=== PATIENT | female | born 1995 | race Caucasian/White ===

== ENCOUNTER 2018-10-31 10:55 | Observation (INO) ==
--- NOTE | 2018-10-31 11:15 | Emergency Department Note ---
Disposition Clinical Impression: Dehydration, Elevated troponin Intractable vomiting Qualifiers: Vomiting type: unspecified Nausea presence: with nausea Qualified Code(s): R11.2 - Nausea with vomiting, unspecified Disposition: Admitted As Inpatient Condition: Undetermined Referrals: NONE,PCP [Primary Care Provider] - Forms: ED Satisfaction Letter Time of Disposition: 16:04 General Adult HPI - General Chief complaint: ED Nausea/Vomiting/Diarrhea Stated complaint: Vomiting x3 days Time Seen by Provider: 10/31/18 11:04 Source: patient, family Mode of arrival: ambulatory Limitations: no limitations Nursing Notes Reviewed: Yes Vital Signs Reviewed: Yes - History of Present Illness HPI Narrative: 22-year-old female 3 days nausea vomiting Seen 1 month ago for similar symptoms patient stated nausea vomiting resolved with IM Phenergan Patient states that she has been without symptoms for the past 3 weeks leading up to approximately 3 days ago Patient has been unable to tolerate by mouth intake since that time. Patient with fever/chills, chest discomfort shortness of breath, generalized abdominal pain/nausea/vomiting, no hematuria or hematochezia Onset (ago): day(s) Location: abdomen Radiation: non-radiation Pain Severity: similar to prior episodes Pain Scale: 7 Quality: stabbing Consistency: constant, Worsening Improves with: medication Associated symptoms: Reports: chest pain, fever/chills, loss of appetite, malaise, nausea/vomiting, shortness of breath, weakness - Related Data Allergies Allergy/AdvReac Type Severity Reaction Status Date / Time No Known Allergies Allergy Verified 03/26/15 04:59 All systems ED: reviewed and negative except as stated. Review of Systems: As Per HPI Constitutional: Reports: fever, chills, weakness Cardiovascular: Reports: chest pain Respiratory: Reports: dyspnea. Denies: hemoptysis Gastrointestinal: Reports: abdominal pain, nausea, vomiting, diarrhea. Denies: constipation, hematemesis, hematochezia Genitourinary: Denies: hematuria Musculoskeletal: Denies: back pain, neck pain Neurological: Reports: weakness. Denies: headache, numbness, paresthesias Past Medical History - Past Medical History Medical history: Reports: GERD Surgical history: Reports: no surgical history Psychiatric history: Reports: no psych history - Social History Smoking Status: Current every day smoker Smokeless Tobacco Status: No Alcohol use: Reports: none Drug use: Reports: none Physical Exam - General Limitations: no limitations General appearance: alert, in no apparent distress - Head Head exam: atraumatic, normocephalic, normal inspection - Eye Eye exam: Present: normal appearance, PERRL, EOMI. Absent: scleral icterus - Neck Neck exam: Present: normal inspection - Chest Chest inspection: Present: normal inspection, symmetric chest wall rise - Respiratory Respiratory exam: Present: normal lung sounds bilaterally, respiratory distress. Absent: wheezes, stridor, accessory muscle use, prolonged expiratory phase - Cardiovascular Cardiovascular exam: Present: regular rate, normal rhythm, normal heart sounds, +S1, +S2. Absent: systolic murmur, diastolic murmur, JVD, +S3, +S4 - Abdominal Exam Abdominal exam: Present: soft, Non-Tender, normal bowel sounds. Absent: distention, guarding, rebound, rigidity, organomegaly - Neurological Exam Neurological exam: Present: alert, oriented X3 - Psychiatric Psychiatric exam: Present: normal affect, normal mood - Skin Skin exam: Present: warm, dry, intact, normal color. Absent: rash, cyanosis, diaphoresis, erythema, pallor, mottled Course Course Narrative: CBC, BMP, urinalysis, urine , chest x-ray Phenergan/Zofran for symptom management. opening the you - Reevaluation(s) Reevaluation #1: Laboratory and imaging results unremarkable for acute pathology. Patient still feeling nauseous with vomiting We will give 25 mg Phenergan at this time. We will reassess Vital Signs Temperature 97.9 F 10/31/18 11:06 Pulse Rate 118 10/31/18 11:06 Respiratory Rate 18 10/31/18 11:06 Blood Pressure 137/90 10/31/18 11:06 O2 Sat by Pulse Oximetry 95 10/31/18 11:06 Temperature 97.9 F 10/31/18 11:24 Pulse Rate 81 10/31/18 15:36 Respiratory Rate 18 10/31/18 15:36 Blood Pressure 137/103 10/31/18 15:36 O2 Sat by Pulse Oximetry 100 10/31/18 15:36 Oxygen Delivery Oxygen Delivery Room Air Medical Decision Making - [facility] Narrative Medical decision making narrative: Patient troponin elevated 0.05. Patient continues to vomit despite Zofran +2 doses of Phenergan Patient will be admitted to hospital medicine service for troponin trending and intractable vomiting. Urine toxicology, nothing by mouth and maintenance fluids started per hospitalist request. - Lab Data Lab results reviewed: Yes I reviewed the patient's lab results. Result diagrams: 10/31/18 11:40 10/31/18 11:40 Lab Results 10/31/18 10/31/18 10/31/18 Range/Units 11:26 11:33 11:40 WBC 8.2 (4.3-11.1) K/mcL RBC 4.85 (3.82-4.97) M/mcL Hgb 15.0 (11.5-15.4) g/dL Hct 43.2 (35.3-44.9) % MCV 89.1 (83.0-100.0) fL MCH 30.9 (28.0-33.3) pg MCHC 34.7 (31.6-35.5) g/dL RDW 13.0 (11.5-14.5) % Plt Count 231 (140-400) K/mcL MPV 9.6 (9.4-12.4) fL Immature Gran % 0.4 (0-4) % Seg Neutrophils % 71.9 % Lymphocytes % 18.3 % Monocytes % 9.2 % Eosinophils % 0.0 % Basophils % 0.2 % Neutrophils # 5.9 (1.6-8.9) K/mcL Lymphocytes # 1.5 (0.6-4.6) K/mcL Monocytes # 0.8 (0.0-1.3) K/mcL Eosinophils # 0.0 (0.0-0.6) K/mcL Basophils # 0.0 (0.0-0.2) K/mcL Sodium (136-145) mEq/L Potassium (3.5-5.1) mEq/L Chloride (98-107) mEq/L Carbon Dioxide (23-29) mEq/L BUN (6-20) mg/dL Creatinine (0.60-1.20) mg/dL Est GFR ( Amer) (> 60) Est GFR (Non-Af Amer) (> 60) BUN/Creatinine Ratio (6-26) Glucose (70-105) mg/dL Calculated Osmolality (280-300) Calcium (8.6-10.3) mg/dL Troponin I (< 0.04) ng/mL Ur Specimen Adequacy See below A Urine Color Yellow (Yellow) Urine Clarity Clear (Clear) Urine pH 6.0 (5.0-8.0) pH Units Ur Specific [place] >= 1.030 H (1.010-1.025) Urine Protein >=300 H (Neg-Trace) mg/dL Urine Glucose (UA) Normal (Normal) mg/dL Urine Ketones 40 H (Negative) mg/dL Urine Blood Negative (Negative) Urine Nitrite Negative (Negative) Urine Bilirubin Small H (Negative) Urine Urobilinogen Normal (Normal) mg/dL Ur Leukocyte Esterase Negative (Negative) Ur Squamous Epith Cells Many H (None-Few) per lpf Urine Bacteria Few (None-Few) per hpf Urine Mucus Few (Few) Urine Test Negative (Negative) 10/31/18 Range/Units 11:40 WBC (4.3-11.1) K/mcL RBC (3.82-4.97) M/mcL Hgb (11.5-15.4) g/dL Hct (35.3-44.9) % MCV (83.0-100.0) fL MCH (28.0-33.3) pg MCHC (31.6-35.5) g/dL RDW (11.5-14.5) % Plt Count (140-400) K/mcL MPV (9.4-12.4) fL Immature Gran % (0-4) % Seg Neutrophils % % Lymphocytes % % Monocytes % % Eosinophils % % Basophils % % Neutrophils # (1.6-8.9) K/mcL Lymphocytes # (0.6-4.6) K/mcL Monocytes # (0.0-1.3) K/mcL Eosinophils # (0.0-0.6) K/mcL Basophils # (0.0-0.2) K/mcL Sodium 133 L (136-145) mEq/L Potassium 3.1 L (3.5-5.1) mEq/L Chloride 106 (98-107) mEq/L Carbon Dioxide 19 L (23-29) mEq/L BUN 17 (6-20) mg/dL Creatinine 0.76 (0.60-1.20) mg/dL Est GFR ( Amer) > 60 (> 60) Est GFR (Non-Af Amer) > 60 (> 60) BUN/Creatinine Ratio 22 (6-26) Glucose 126 H (70-105) mg/dL Calculated Osmolality 279 L (280-300) Calcium 9.5 (8.6-10.3) mg/dL Troponin I 0.05 H* (< 0.04) ng/mL Ur Specimen Adequacy Urine Color (Yellow) Urine Clarity (Clear) Urine pH (5.0-8.0) pH Units Ur Specific [place] (1.010-1.025) Urine Protein (Neg-Trace) mg/dL Urine Glucose (UA) (Normal) mg/dL Urine Ketones (Negative) mg/dL Urine Blood (Negative) Urine Nitrite (Negative) Urine Bilirubin (Negative) Urine Urobilinogen (Normal) mg/dL Ur Leukocyte Esterase (Negative) Ur Squamous Epith Cells (None-Few) per lpf Urine Bacteria (None-Few) per hpf Urine Mucus (Few) Urine Test (Negative) - Radiology Data Radiology results reviewed: Yes I reviewed the patient's radiology results. Chest X-Ray 10/31/18 11:45 IMPRESSION: Normal chest x-ray D/ / Sudeep Linn MD / Sudeep Linn MD Interpreting Provider: Sudeep Linn MD - EKG Data EKG #1 EKG attestation: Yes I reviewed and interpreted this EKG. EKG results narrative: Patient EKG shows a sinus rhythm with sinus positive with a heart rate of 89 bpm, RI interval of 135 ms, QRS duration of 91 ms, QT/QTc interval of 4341/415 ms respectively. There are no acute ST segment elevations, depressions, pathologic Q waves, abnormal T-wave inversions, or any other signs of acute ischemic change. EKG performed today is generally consistent with prior EKG performed on 03/26/2015.
[2018-10-31] MEDS ORDERED: 0.9 % Sodium Chloride 1,000 ML IVC ONE (11:24)
[2018-10-31] MEDS ORDERED: Ondansetron 4 MG/2 ML VIAL IVP ONE (11:24)
--- NOTE | 2018-10-31 11:28 | Emergency Department Note ---
Disposition Clinical Impression: Dehydration Disposition: Still a Patient Forms: ED Satisfaction Letter General Adult HPI - General Chief complaint: ED Nausea/Vomiting/Diarrhea Stated complaint: Vomiting x3 days Time Seen by Provider: 10/31/18 11:04 Source: patient, family Mode of arrival: ambulatory Limitations: no limitations Nursing Notes Reviewed: Yes Vital Signs Reviewed: Yes - History of Present Illness HPI Narrative: Attestation note: Patient was seen with the emergency medicine resident/nurse practitioner/physician health care assistant/transitional resident/medical student: Dr. Miguel Seals I have personally performed a face to face evaluation on this patient. I have reviewed and agree with history and physical examination patient management and disposition. Briefly the salient points of the case are as follows: 22-year-old female otherwise healthy was seen several weeks ago [facility] in the emergency department for vomiting he said that she had low potassium IV fluids any UTI and put on antibiotics. She said she was fine until about 3 days ago when the same symptoms started about denies fevers chills shortness breath or chest pain abdomen surgically benign no CVAT no new sexual contacts or vaginal discharge. Patient appears clinically dehydrated. Patient with IV normal saline 1 L bolus 10 mg of IV Zofran screening labs including UA and urine . Disposition pending Pain Scale: 7 - Related Data Home Medications Medication Instructions Recorded Confirmed Vit/FA 04/23/15 04/23/15 Previous Rx's Medication Instructions Recorded Clindamycin [Cleocin] 150 mg PO Q6HR #8 capsule 07/24/15 OxyCODONE Immed Rel [Roxicodone 5 5 - 10 mg PO Q6HR PRN #30 tablet 07/24/15 MG] Allergies Allergy/AdvReac Type Severity Reaction Status Date / Time No Known Allergies Allergy Verified 03/26/15 04:59 Past Medical History - Past Medical History Medical history: Reports: GERD Surgical history: Reports: no surgical history Psychiatric history: Reports: no psych history - Social History Smoking Status: Current every day smoker Smokeless Tobacco Status: No Alcohol use: Reports: none Drug use: Reports: none Course Vital Signs Temperature 97.9 F 10/31/18 11:06 Pulse Rate 118 10/31/18 11:06 Respiratory Rate 18 10/31/18 11:06 Blood Pressure 137/90 10/31/18 11:06 O2 Sat by Pulse Oximetry 95 10/31/18 11:06 Temperature 97.9 F 10/31/18 11:06 Pulse Rate 118 10/31/18 11:06 Respiratory Rate 18 10/31/18 11:06 Blood Pressure 137/90 10/31/18 11:06 O2 Sat by Pulse Oximetry 95 10/31/18 11:06 Oxygen Delivery Oxygen Delivery Room Air
[2018-10-31 11:41] LABS: Bilirubin,Urine Small (Negative); Blood,Urine Negative (Negative); Clarity,Urine Clear (Clear); Color,Urine Yellow (Yellow); Glucose,Urine (UA) Normal (Normal); Ketones,Urine 40 mg/dL (Negative); Leukocyte Esterase,Urine Negative (Negative); Nitrite,Urine Negative (Negative); Protein,Urine >=300 mg/dL (Neg-Trace); Specific Gravity,Urine >= 1.030 (1.010-1.025); Urobilinogen,Urine Normal (Normal)
[2018-10-31 11:44] LABS: Bacteria,Urine Few per hpf (None-Few); Mucus,Urine Few (Few); Squamous Epithelial Cell,Urine Many per lpf (None-Few)
[2018-10-31 12:06] LABS: Basophils % 0.2 %; Hematocrit 43.2 % (35.3-44.9); Immature Granulocytes % 0.4 % (0-4); Lymphocytes # 1.5 K/mcL (0.6-4.6); Lymphocytes % 18.3 %; Mean Corpuscular HGB Conc 34.7 g/dL (31.6-35.5); Mean Corpuscular Hemoglobin 30.9 pg (28.0-33.3); Mean Corpuscular Volume 89.1 fL (83.0-100.0); Mean Platelet Volume 9.6 fL (9.4-12.4); Monocytes # 0.8 K/mcL (0.0-1.3); Monocytes % 9.2 %; Neutrophils # 5.9 K/mcL (1.6-8.9); Platelet Count 231 K/mcL (140-400); Red Blood Count 4.85 M/mcL (3.82-4.97); Segmented Neutrophils % 71.9 %
[2018-10-31 12:14] LABS: BUN/Creatinine Ratio 22 (6-26); Blood Urea Nitrogen 17 mg/dL (6-20); Calcium 9.5 mg/dL (8.6-10.3); Carbon Dioxide 19 mEq/L (23-29); Chloride 106 mEq/L (98-107); Glucose 126 mg/dL (70-105); Osmolality,Calculated 279 (280-300); Potassium 3.1 mEq/L (3.5-5.1); Sodium 133 mEq/L (136-145); eGFR For Non-African Americans > 60 (> 60)
[2018-10-31] MEDS ORDERED: *HR* Promethazine 25 MG/ML VIAL IVP ONE ×2 (12:31→15:00)
[2018-10-31 15:50] LABS: Troponin I 0.05 ng/mL (< 0.04)
[2018-10-31] MEDS ORDERED: *HR* Promethazine 25 MG/ML VIAL IVP PRN (16:35)
[2018-10-31] MEDS ORDERED: Acetaminophen 325 MG TABLET PO PRN (16:35)
[2018-10-31] MEDS ORDERED: Naloxone 0.4 MG/ML INJ IVP PRN (16:35)
[2018-10-31] MEDS ORDERED: Ondansetron 4 MG/2 ML VIAL IVP PRN (16:35)
--- NOTE | 2018-10-31 16:50 | Internal Med History&Physical ---
Date of Encounter: 10/31/18 Time of Encounter: 16:37 Internal Medicine - H&P: HPI Chief complaint: N/V Admitted From: Emergency Dept History of present illness: Shira Olivares is a 22 F w hx morbid obesity, anxiety, who p/w N/V. Started 3 days ago. Not really able to keep anything down including liquids. States she thinks she had a head/chest cold for a day or two prior to these symptoms. Has had subjective fever/chills in last 2 days. Throat is sore after throwing up but was sore prior, too. Does also have some chest burning and aching following vomiting. No diarrhea, no rash. Denies drug use including no THC. Denies . States she had an episode 1 month ago of similar symptoms, came to this ED and improved w IV phenergan. In the ED, pt vitals w HR 110s. Pt vomiting despite repeated doses of both zofran and phenergan. Labs w Na 133, K 3.1, CO2 19, trop 0.05. Past medical, surgical, social, and family histories reviewed and updated as below, with addition to FHx that mother has no hx GI issues. Past Med Surg Social Fam HX - Past Medical History Medical history: GERD Psychiatric history: anxiety, depression - Past Surgical History Surgical History: no surgical history Additional surgical history: EGD 2011 - Social History Smoking Status: Current every day smoker Smokeless Tobacco Status: No Alcohol use: none Drug use: marijuana - Family History Mother Living Status: Still Living Hx Family Endocrine Disorder: Yes Internal Medicine - H&P: Meds No Known Home Drugs 10/31/18 [History] Allergy/AdvReac Type Severity Reaction Status Date / Time No Known Allergies Allergy Verified 03/26/15 04:59 All Systems PM: A 10-system review of systems was performed and is negative for pertinent findings except as documented above in the HPI. - Constitutional Vitals: Temp Pulse Resp BP Pulse Ox 97.9 F 81 18 137/103 100 10/31/18 11:24 10/31/18 15:36 10/31/18 15:36 10/31/18 15:36 10/31/18 15:36 Exam: General: NAD, good eye contact, uncomfortable appearing, obese Head: Atraumatic, normocephalic. Face symmetric Eyes: EOMI, sclerae anicteric ENT: Mucous membranes dry. Normal oral mucosa and dentition. Trachea midline. Thoracic: No visible chest wall deformities. Normal breath sounds b/l, no wheezing or crackles Cardio: Normal S1 and S2, regular rate and rhythm, no murmurs. Abdomen: Soft, nontender, nondistended. Bowel sounds present. No rebound Extremities: Warm, well perfused. DP pulses 2+ b/l. No clubbing, cyanosis. No edema Skin: Intact. No rashes, bruises, or ulcers Neuro: Awake, fully oriented. Good memory, concentration, attention. Speech fluent. Internal Med - H&P Results - Labs CBC & Chem 7: 10/31/18 11:40 10/31/18 11:40 Labs: Short CBC 10/31/18 Range/Units 11:40 WBC 8.2 (4.3-11.1) K/mcL Hgb 15.0 (11.5-15.4) g/dL Hct 43.2 (35.3-44.9) % Plt Count 231 (140-400) K/mcL Neutrophils # 5.9 (1.6-8.9) K/mcL BMP 10/31/18 11:40 Sodium 133 L Potassium 3.1 L Chloride 106 Carbon Dioxide 19 L BUN 17 Creatinine 0.76 Glucose 126 H Calcium 9.5 Cardiac Enzymes 10/31/18 Range/Units 11:40 Troponin I 0.05 H* (< 0.04) ng/mL Urine 10/31/18 Range/Units 11:26 Urine Color Yellow (Yellow) Urine Clarity Clear (Clear) Urine pH 6.0 (5.0-8.0) pH Units Ur Specific [place] >= 1.030 H (1.010-1.025) Urine Protein >=300 H (Neg-Trace) mg/dL Urine Glucose (UA) Normal (Normal) mg/dL - Impressions ITS Impressions Chest X-Ray 10/31/18 11:45 IMPRESSION: Normal chest x-ray D/ / Sudeep Linn MD / Sudeep Linn MD Interpreting Provider: Sudeep iLnn MD - Summary of Assessment and Plan Summary of Assessment and Plan: Shira Olivares is a 22 F w hx morbid obesity, anxiety, who p/w refractory N/V and electrolyte abnormalities. Refractory N/V: not , UA unremarkable - Utox - MIVF NS@150 - zofran and phenergan, will consider haldol or ativan for breakthrough Hyponatremia: hypovolemic, rehydrate and monitor Hypokalemia: replace and monitor Starvation ketosis: UA w ketones, no PO intake in 3 days, hydrate and supportive care Non-gap metabolic acidosis: possibly 2/2 starvation ketosis, otherwise unclear etiology as no diarrhea and would expect alkalosis from vomiting, if not improving w hydration will eval for RTA Elevated troponin: no reason to suspect ischemia other than CP after vomiting, ECG normal. Will repeat trop in AM following rehydration to ensure clearance Anxiety: vistaril 25 tid prn Morbid obesity: BMI 44 PPx: ambulate FEN: regular, MIVF NS@150 Lines: PIV Consults: Code: Full Dispo: obs for n/v, anticipate 1-2 days, will be homegoing
[2018-10-31] MEDS: 0.9 % Sodium Chloride 1,000 ML IVC SCH ×2 (17:30→18:44)
[2018-11-01] MEDS: hydrOXYzine pamoate 25 MG CAPSULE PO PRN ×2 (00:40→16:39)
[2018-11-01 02:27] LABS: Hematocrit 39.7 % (35.3-44.9); Hemoglobin 12.9 g/dL (11.5-15.4); Mean Corpuscular HGB Conc 32.5 g/dL (31.6-35.5); Mean Corpuscular Hemoglobin 30.7 pg (28.0-33.3); Mean Corpuscular Volume 94.5 fL (83.0-100.0); Mean Platelet Volume 10.4 fL (9.4-12.4); Platelet Count 202 K/mcL (140-400); Red Cell Distribution Width 13.3 % (11.5-14.5)
[2018-11-01 02:47] LABS: Troponin I < 0.03 ng/mL (< 0.04)
[2018-11-01] MEDS: 0.9 % Sodium Chloride 1,000 ML IVC SCH ×6 (02:57→20:18)
[2018-11-01 02:59] LABS: Alanine Aminotransferase 11 Units/L (7-52); Albumin 3.6 g/dL (3.5-5.7); Albumin/Globulin Ratio 1.1 (1.1-2.2); Alkaline Phosphatase 38 Units/L (34-104); Aspartate Amino Transferase 16 Units/L (13-39); BUN/Creatinine Ratio 16 (6-26); Bilirubin,Direct 0.1 mg/dL (0.0-0.2); Bilirubin,Indirect 0.2 mg/dL (0.0-1.2); Bilirubin,Total 0.3 mg/dL (0.3-1.0); Blood Urea Nitrogen 12 mg/dL (6-20); Calcium 8.6 mg/dL (8.6-10.3); Carbon Dioxide 22 mEq/L (23-29); Chloride 108 mEq/L (98-107); Globulin 3.3 g/dL (2.4-3.5); Glucose 96 mg/dL (70-105); Magnesium 1.8 mg/dL (1.6-2.6); Osmolality,Calculated 284 (280-300); Phosphorous 2.9 mg/dL (2.7-4.5); Potassium 4.3 mEq/L (3.5-5.1); Sodium 137 mEq/L (136-145); Total Protein 6.9 g/dL (6.4-8.9); eGFR For Non-African Americans > 60 (> 60)
[2018-11-01 09:16] LABS: Amphetamine Screen,Urine Negative ng/mL (Cutoff=1000); Barbiturate Screen,Urine Negative ng/mL (Cutoff=200); Benzodiazepines Screen,Urine Negative ng/mL (Cutoff=200); Cannabinoid Screen,Urine Positive ng/mL (Cutoff = 50); Cocaine Screen,Urine Negative ng/mL (Cutoff= 300); Opiate Screen,Urine Negative ng/mL (Cutoff=300); Phencyclidine Screen,Urine Negative ng/mL (Cutoff=25)
[2018-11-01] MEDS ORDERED: *HR* LORazepam 1 MG TABLET PO PRN (12:04)
--- NOTE | 2018-11-01 14:44 | Internal Med Progress Note ---
Hospitalist Progress Note - Encounter Date of Encounter: 11/01/18 Time of Encounter: 14:41 - Subjective Interval History: Ms. Olivares is a 22 F w hx morbid obesity, anxiety and chronic marijuana dependence patient presented to ER complaining with intractable nausea and vomiting from last 3 days. Patient was admitted in the hospital and started on IV hydration along with symptomatic care. Pt stated she felt little better y/d, however today again she has worsening nausea and vomiting. Denied any CP. She does c/o anxiety and lot of stress at home. - Exam Vitals: Temp Pulse Resp BP Pulse Ox 97.7 F 61 14 124/83 99 11/01/18 11:11 11/01/18 11:11 11/01/18 11:11 11/01/18 11:11 11/01/18 11:11 Exam: Gen: Alert, awake, Oriented to time,place and person Chest: Diminished breath sounds B/L, No wheezing, No crackles, No rales Heart: S1S2+ RRR No murmurs Abd: Soft, NT, BS +, No organomegaly Ext: No edema, pulses are palpable, No calf tenderness Neuro : Benign findings Skin: No rash. - Assessment and Plan (1) Intractable vomiting Current Visit: Yes Status: Acute Assessment and Plan: Mostly due to viral gastroenteritis also concerning for possible withdrawal symptoms / Anxiety related too cont IV hydration Cont anti emetics Zofran and Phenergan started her on Ativan too advance diet as she tolerates (2) Dehydration Current Visit: Yes Status: Acute Assessment and Plan: on IVF (3) Elevated troponin Current Visit: Yes Status: Acute Assessment and Plan: Due to demand ischemia serial trop x 2 were negative no further work up needed (4) Anxiety Current Visit: Yes Status: Acute Assessment and Plan: Placed her on Ativan - Time Spent with Patient Total time spent is greater than 50% in coordination of care (as documented) at patient's floor/unit and/or counseling patient: Internal Medicine: Result - Labs CBC & Chem 7: 11/01/18 01:47 11/01/18 01:47 Labs: Short CBC 11/01/18 Range/Units 01:47 WBC 6.8 (4.3-11.1) K/mcL Hgb 12.9 D (11.5-15.4) g/dL Hct 39.7 (35.3-44.9) % Plt Count 202 (140-400) K/mcL BMP 10/31/18 11/01/18 11:40 01:47 Sodium 133 L 137 Potassium 3.1 L 4.3 D Chloride 106 108 H Carbon Dioxide 19 L 22 L BUN 17 12 Creatinine 0.76 0.73 Glucose 126 H 96 Calcium 9.5 8.6 Cardiac Enzymes 10/31/18 10/31/18 11/01/18 Range/Units 11:40 16:53 01:47 Troponin I 0.05 H* < 0.03 < 0.03 (< 0.04) ng/mL Liver Function 11/01/18 Range/Units 01:47 Total Bilirubin 0.3 (0.3-1.0) mg/dL Direct Bilirubin 0.1 (0.0-0.2) mg/dL AST 16 (13-39) Units/L ALT 11 (7-52) Units/L Alkaline Phosphatase 38 (34-104) Units/L Albumin 3.6 (3.5-5.7) g/dL Consult Discharge Plan - Plan Referrals: Rula Abdullahi, DESIGN PROJECT MANAGER [Advanced Practice Nurse] - 11/08/18 11:00 am ___ (1) Intractable vomiting Qualifiers: Vomiting type: unspecified Nausea presence: with nausea Qualified Code(s): R11.2 - Nausea with vomiting, unspecified
[2018-11-02] MEDS: hydrOXYzine pamoate 25 MG CAPSULE PO PRN
[2018-11-02] MEDS: 0.9 % Sodium Chloride 1,000 ML IVC SCH (03:17)
[2018-11-02 06:51] VITALS: BP 133/83
--- NOTE | 2018-11-02 09:18 | Discharge Summary ---
- NOTES TO OUTPATIENT PROVIDER Notes to Outpatient Provider: Follow up with PCP in one week. Please quit smoking tobacco and marijuana Date of Encounter: 11/02/18 Time of Encounter: 09:14 - Discharge Diagnosis (1) Intractable vomiting Priority: Primary Status: Acute Qualifiers: Vomiting type: unspecified Nausea presence: with nausea Qualified Code(s): R11.2 - Nausea with vomiting, unspecified (2) Dehydration Priority: Primary Status: Acute (3) Elevated troponin Priority: Secondary Status: Acute (4) Anxiety Priority: Secondary Status: Acute Hospital course: Ms. Olivares is a 22 F w hx morbid obesity, anxiety and chronic marijuana dependence patient presented to ER complaining with intractable nausea and vomiting from last 3 days. Patient was admitted in the hospital and started on IV hydration along with symptomatic care. She does have slightly elevated troponin initially, which could be mostly due to demand ischemia. Her serial troponin were negative and no acute ischemic changes noticed on EKG. Her intractable nausea vomiting seems to be secondary to possible withdrawal symptoms / Anxiety related too. With IV Zofran and Ativan her symptoms improved. Her UDS came back as positive for Marijuana, counseled the pt to quit smoking tobacco and Marijuana. Today pt tolerating PO intake well. Will d/c her home in stable condition today. - Time Spent with Patient Total time spent providing and/or coordinating discharge services: - Discharge Medications Prescriptions: New LORazepam [Ativan] 0.5 mg PO BID PRN 5 Days #10 tablet PRN Reason: Anxiety Ondansetron ODT [Zofran ODT] 4 mg SL Q8HR PRN #15 tab.rapdis PRN Reason: Nausea Home Medications: LORazepam [Ativan] 0.5 mg PO BID PRN 5 Days #10 tablet 11/02/18 [Rx] Ondansetron ODT [Zofran ODT] 4 mg SL Q8HR PRN #15 tab.rapdis 11/02/18 [Rx] Allergies/Adverse Reactions: Allergy/AdvReac Type Severity Reaction Status Date / Time No Known Allergies Allergy Verified 03/26/15 04:59 Date of admission: 10/31/18 16:28 Primary care physician: PCP NONE - Constitutional Vitals: Temp Pulse Resp BP Pulse Ox 98.2 F 53 18 133/83 97 11/02/18 06:46 11/02/18 06:46 11/02/18 06:46 11/02/18 06:46 11/02/18 06:46 General appearance: Present: A&O X 3, no acute distress, answers questions appropriately Exam: Gen: Alert, awake, Oriented to time,place and person Chest: Diminished breath sounds B/L, No wheezing, No crackles, No rales Heart: S1S2+ RRR No murmurs Abd: Soft, NT, BS +, No organomegaly Ext: No edema, pulses are palpable, No calf tenderness Neuro : Benign findings Skin: No rash. - Patient Status Disposition: Home, Self-Care Condition: Good Overall status at discharge: patient is back to baseline - Discharge Instructions Follow Up With: Rula Abdullahi TRANSCRIPT EVALUATOR [Advanced Practice Nurse] - 11/08/18 11:00 am - Diet and Activity Activity: increase activity as tolerated Diet: advance to your usual diet
--- NOTE | 2018-11-05 11:08 | Electrocardiograph Report ---
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
== END 2018-11-02 09:46 | disposition home or self-care (01) ==
LOC: EMEROOARM 10:55 → 3BNU 10:55 → SUATTDRO 16:28 → 3BNU 17:00
PROVIDERS: ADMIT Internal Medicine; ATTEND Family Medicine